=== PATIENT | male | born 1960 | race Caucasian/White ===

== ENCOUNTER 2019-05-29 08:11 | Emergency (ER) | payer OTHER ==
[~2019-05-29] VITALS: Ht 162.6 cm; Wt 79.0 kg
[~2019-05-29 08:11] MED LIST: BEN50 PO; D-ME473S2 PO; FAMO-96 PO; IBUP-1542 PO; PRED20TA PO
[2019-05-29 08:13] VITALS: BP 131/87; PULSE 87; RESP 18; Ht 162.6 cm; Wt 79.0 kg
[2019-05-29] MEDS ORDERED: predniSONE 20 MG TAB PO ONE (09:00)
[2019-05-29] MEDS ORDERED: DIPHENHYDRAMINE 25 MG CAP PO ONE (09:00)
[2019-05-29] MEDS ORDERED: FAMOTIDINE 20 MG TAB PO ONE (09:00)
== END 2019-05-29 09:17 | disposition home or self-care (01) ==
LOC: FTE 08:11
DX: L50.0 Allergic urticaria (principal)
CPT/HCPCS: J7512; Z7610; 99283